=== PATIENT | female | born 1995 | race Caucasian/White ===

== ENCOUNTER 2023-09-03 10:29 | Emergency (ER) | payer OTHER, BC ==
[~2023-09-03] VITALS: Ht 160 cm; Wt 67.0 kg
[~2023-09-03 10:29] MED LIST: ALLE25CA PO; CETI10TA OR; EPIP0.3I IM; HYDR25TA8 OR; HYDR50TA8 OR; PEPC20TA2 PO; PRED10TA2 OR; PRED20TA PO; ZANT150T OR
[2023-09-03] MEDS ORDERED: LIDOCAINE 2% MDV 20ML VIAL SC ONE (12:00)
[2023-09-03] MEDS ORDERED: BOOSTRIX VACCINE (TETANUS/DIPHTH/ACEL. PERTUSSIS) 0.5ML SYR IM.IMMUN ONE (12:00)
[2023-09-03] MEDS ORDERED: CEPH500C PO (13:19)
[2023-09-03] MEDS ORDERED: CEPHALEXIN 500 MG CAP PO ONE (13:20)
[2023-09-03 13:21] VITALS: BP 118/72; TEMP 97.2; O2SAT 100
== END 2023-09-03 13:29 | disposition home or self-care (01) ==
LOC: M ED 10:29
DX: S61.214A Laceration without foreign body of right ring finger without damage to nail, initial encounter (principal); S60.041A Contusion of right ring finger without damage to nail, initial encounter; X50.0XXA Overexertion from strenuous movement or load, initial encounter; Y92.9 Unspecified place or not applicable; Y93.89 Activity, other specified; Y99.0 Civilian activity done for income or pay; Z79.2 Long term (current) use of antibiotics